=== PATIENT | male | born 1965 | race Caucasian/White ===

== ENCOUNTER 2018-01-25 05:20 | Emergency (ER) | payer BC ==
--- NOTE | 2018-01-25 05:52 | EDM.PDOC ---
ED HPI GENERAL MEDICAL PROBLEM - General Chief Complaint: ENT Problem Stated Complaint: SOMETHING HAS CRAWLED INTO LEFT EAR Time Seen by Provider: 01/25/18 05:40 Source of Information: Reports: Patient, RN History Limitations: Reports: No Limitations - History of Present Illness INITIAL COMMENTS - FREE TEXT/NARRATIVE: 52 yo male here with a complaint of a bug in his L ear. Woke him from sleep. Onset: Today Onset Date: 01/25/18 Onset Time: 05:00 Duration: Minutes: Location: Reports: Head (L ear) Quality: Reports: Ache Severity: Mild Improves with: Reports: None Worsens with: Reports: None Context: Reports: Other (bug in ear, left) Associated Symptoms: Reports: No Other Symptoms Treatments [employer]: Reports: Other (see below) (none) Left Ear Pain Score (Numeric/FACES): 0 - Related Data Allergies Allergy/AdvReac Type Severity Reaction Status Date / Time Penicillins Allergy Hives Verified 01/25/18 05:34 Home Meds: Home Meds . [Unable to Verify Home Med List] 01/25/18 [History] Past Medical History Cardiovascular History: Reports: Hypertension - Infectious Disease History Infectious Disease History: Reports: Chicken Pox - Past Surgical History GI Surgical History: Reports: Appendectomy Social & Family History - Tobacco Use Smoking Status *Q: Current Every Day Smoker Years of Tobacco use: 35 Packs/Tins Daily: 1 Used Tobacco, but Quit: No Second Hand Smoke Exposure: Yes - Caffeine Use Caffeine Use: Reports: Coffee - Alcohol Use Days Per Week of Alcohol Use: 0 - Recreational Drug Use Recreational Drug Use: No ED ROS ENT - Review of Systems Review Of Systems: See Below Constitutional: Reports: No Symptoms HEENT: Reports: Other (insect in L ear) ED EXAM, ENT - Physical Exam Exam: See Below Exam Limited By: No Limitations General Appearance: Alert, WD/WN, No Apparent Distress Eye Exam: Bilateral Eye: Normal Inspection Ears: Hearing Grossly Normal, Canal Foreign Body (bug), TM Erythema (on left) Nose: Normal Inspection, Normal Mucousa, No Blood Course - Vital Signs Text/Narrative:: insect removed by nursing here in the ER. Last Recorded V/S: Last Vital Signs Temp 35.7 C 01/25/18 05:32 Pulse 72 01/25/18 05:32 Resp 16 01/25/18 05:32 BP 124/85 01/25/18 05:32 Pulse Ox 94 L 01/25/18 05:32 Departure - Departure Time of Disposition: 05:51 Disposition: Home, Self-Care 01 Condition: Good Clinical Impression: Foreign body of ear, left Qualifiers: Encounter type: initial encounter Qualified Code(s): T16.2XXA - Foreign body in left ear, initial encounter - Discharge Information Referrals: PCP,None [Primary Care Provider] - Forms: ED Department Discharge
== END 2018-01-25 05:57 | disposition home or self-care (01) ==
LOC: JP.ED 05:20
DX: T16.2XXA Foreign body in left ear, initial encounter (principal); F17.210 Nicotine dependence, cigarettes, uncomplicated; I10 Essential (primary) hypertension; Z88.0 Allergy status to penicillin
CPT/HCPCS: 99283

== ENCOUNTER 2022-02-03 05:34 | Emergency (ER) | payer BC | END 2022-02-03 06:51 | disposition home or self-care (01) | LOC: JP.ED 05:34 | DX: U07.1 COVID-19 (principal); J35.1 Hypertrophy of tonsils; J40 Bronchitis, not specified as acute or chronic; J02.9 Acute pharyngitis, unspecified; E78.00 Pure hypercholesterolemia, unspecified; I10 Essential (primary) hypertension; E11.9 Type 2 diabetes mellitus without complications; F17.210 Nicotine dependence, cigarettes, uncomplicated; E66.9 Obesity, unspecified; Z68.30 Body mass index [BMI] 30.0-30.9, adult; Z28.310 Unvaccinated for COVID-19; Z88.0 Allergy status to penicillin | CPT/HCPCS: 87081; 87880-QW; 99283; U0002 ==

== ENCOUNTER 2022-09-11 09:45 | Emergency (ER) | payer BC | END 2022-09-11 11:15 | disposition home or self-care (01) | LOC: JP.ED 09:45 | DX: K92.2 Gastrointestinal hemorrhage, unspecified (principal); E78.00 Pure hypercholesterolemia, unspecified; I10 Essential (primary) hypertension; E11.9 Type 2 diabetes mellitus without complications; E66.9 Obesity, unspecified; F17.210 Nicotine dependence, cigarettes, uncomplicated; Z68.41 Body mass index [BMI] 40.0-44.9, adult; Z88.0 Allergy status to penicillin; Z90.49 Acquired absence of other specified parts of digestive tract | CPT/HCPCS: 36415; 83605; 85025; 99284 ==

== ENCOUNTER 2022-09-12 05:58 | Day surgery (SDC) | payer BC ==
[2022-09-12] MEDS ORDERED: Dextrose 5%-Lactated Ringers 1,000 ML IV SCH (06:30)
[2022-09-12] MEDS ORDERED: Midazolam 1 MG/ML 2 ML SDV ONE (07:09)
[2022-09-12] MEDS ORDERED: fentaNYL 50 MCG/ML SDV ONE (07:09)
[2022-09-12] MEDS ORDERED: Propofol 200 MG/20 ML SDV ONE ×3 (07:10→07:34)
[2022-09-12] MEDS ORDERED: Neostigmine Methylsulfate 1 MG/ML 5 ML Syringe ONE (07:11)
[2022-09-12] MEDS ORDERED: Dexamethasone 4 MG/ML SDV ONE (07:11)
[2022-09-12] MEDS ORDERED: Rocuronium 50 MG/5 ML Vial ONE (07:11)
[2022-09-12] MEDS ORDERED: fentaNYL 250 MCG/5 ML SDV ONE (07:11)
[2022-09-12] MEDS ORDERED: Glycopyrrolate 0.2 MG/ML 5 ML MDV ONE (07:11)
[2022-09-12] MEDS ORDERED: Ondansetron 4 MG/2 ML SDV ONE (07:11)
[2022-09-12] MEDS ORDERED: Succinylcholine 200 MG/10 ML MDV ONE (07:11)
[2022-09-12] MEDS ORDERED: Levofloxacin 500 MG Tab PO ONE (09:00)
== END 2022-09-12 09:00 | disposition home or self-care (01) ==
LOC: JP.SDS 05:58
PROVIDERS: ATTEND Surgery
DX: D12.2 Benign neoplasm of ascending colon (principal); K63.89 Other specified diseases of intestine; K52.9 Noninfective gastroenteritis and colitis, unspecified; K64.9 Unspecified hemorrhoids
CPT/HCPCS: 45380; 45385; 87046; 87177; 87209; 87493; 87899; 89055; A9270; J2250; J2704; J3010; J7121; 88305; J0330; J1100; J2405; J2710; J3490